=== PATIENT | female | born 1950 | race Caucasian/White ===

== ENCOUNTER 2025-01-11 13:13 | Outpatient (AMB) | payer MEDICARE, SELFPAY ==
--- NOTE | 2025-01-11 13:15 | A.OFFVIS_ITS ---
Vital Signs 01/11/25 13:16 Height 5 ft 2 in Weight 120 lb BMI 21.9 BP 150/60 H Blood Pressure Location Rt brachial Position Sitting Respiration 16 Pulse 88 Pulse Source Pulse Oximeter Pulse Oximetry (%) 97 Oxygen Delivery Method Room Air Intake Visit Reasons: low back pain Golf Caddy Required: No Accompanied by: Spouse Allergies erythromycin base Allergy (Unknown, Verified 01/11/25 13:18) Unknown Medication List - Last Reconciled 01/11/25 by Marylou Alcantar LPN aspirin 81 mg PO DAILY B-complex with vitamin C 1 cap PO DAILY [id number]-herb 353 1,250 mcg-150 mg-225 mcg tabs PO calcium carb-mag oxide-vit D3 400-167-133 mg-mg-unit (Calcium Magnesium plus D) tabs PO cholecalciferol (vitamin D3) 25 mcg PO DAILY citalopram 10 mg PO DAILY coenzyme Q10 (Co Q-10) 10 mg PO TID curcumin-phosphatidylcholine mg PO famotidine 40 mg PO BID folic acid 20 mg PO DAILY leucovorin calcium 10 mg PO QWEEK losartan 50 mg PO DAILY methotrexate sodium 20 mg PO QWEEK omega-3 fatty acids 500 mg PO DAILY prednisone 4 mg PO DAILY rosuvastatin 10 mg PO BEDTIME HPI HPI low back pain: Details: History of Present Illness The patient is a 74-year-old female presenting with chronic low back pain associated with polymyalgia rheumatica and osteoporosis. The patient has a history of osteoporosis, for which she takes calcium supplements and receives annual Reclast infusions. She initially completed three rounds of Reclast, which improved her condition from osteoporosis to osteopenia, but subsequent prednisone use for polymyalgia rheumatica led to a regression back to osteoporosis. Polymyalgia rheumatica has been managed with intermittent oral prednisone for flare-ups, and the patient is currently on methotrexate 2.5 mg six times a week. She reports that her back pain was present even while on prednisone, and it radiates to her left leg and buttock, sometimes causing numbness in the thigh. The patient has been diagnosed with spondylolisthesis in the lumbar and cervical spine, contributing to her pain. She experiences shoulder pain, which she attributes to cervical spondylolisthesis and a SLAP tear, as well as rotator cuff tendinopathy. The patient has attempted physical therapy for her lower back and shoulder issues, which provided some relief but did not resolve the problems. She maintains a daily exercise routine to manage her symptoms and prevent worsening of her condition. Recently, she has experienced sharp heel pain, suspected to be Achilles tendinitis, and is considering increasing her methotrexate dosage. Pain Description - Onset: Chronic low back pain present even while on prednisone. - Quality: Radiates to left leg and buttock, causing numbness in the thigh. - Location: Low back, left leg, left buttock. - Radiation: Radiates to left leg and buttock. - Exacerbating Factors: Physical activity may worsen pain. - Relieving Factors: Lying on tennis balls provides temporary relief. - Interference: Pain interferes with walking and daily activities. Physical Exam - Appears afebrile. - Alert and oriented. - Mood and affect appropriate. - Follows and participates in conversation appropriately. - Respiratory effort is unlabored. - Able to transition from sit to stand unassisted. - Ambulates with bilaterally normal heel strike and toe off. - Able to stand and walk on toes and heels. Results - MRI report from 2021 Pain Management - Affect: Pain impacts daily activities and mobility. - Analgesia: Currently using Tylenol for shoulder pain. - Adverse Effects: No specific adverse effects from pain medications discussed. - Activities of Daily Living: Pain limits walking and certain movements. - Aberrant Drug Related Behaviors: No aberrant behaviors reported. [facility] Medical History (Updated 01/11/25 @ 13:46 by Gage Sevilla MD) Polymyalgia rheumatica Left carotid artery stenosis Stricture of esophagus Osteoporosis Depression GERD (gastroesophageal reflux disease) Migraine Chronic low back pain Physical Exam Vital Signs: Last Vital Signs Pulse 88 01/11/25 13:16 Resp 16 01/11/25 13:16 BP 150/60 H 01/11/25 13:16 Pulse Ox 97 01/11/25 13:16 Oxygen Delivery Method Room Air 01/11/25 13:16 BMI result Body Mass Index 21.9 Assessment & Plan Assessment & Plan (1) Lumbar radicular pain: Code(s): M54.16 - Radiculopathy, lumbar region Category: Medical (2) Cervical radicular pain: Code(s): M54.12 - Radiculopathy, cervical region Category: Medical Plan Plan Patient was informed and verbally consented to the use of an ambient scribe for clinic note documentation during this visit. 1. Osteoporosis - Continue annual Reclast infusions and calcium supplementation. - Avoid excessive use of corticosteroids to prevent further bone density loss. 2. Polymyalgia Rheumatica - Continue methotrexate 2.5 mg six times a week. - Consider increasing methotrexate dosage if symptoms persist. 3. Spondylolisthesis - Obtain MRI of cervical and lumbar spine to assess nerve involvement. - Continu HEP/physical therapy to improve mobility and manage pain. 4. Rotator Cuff Tendinopathy - Engage in physical therapy to improve range of motion and decrease pain. 5. Slap Tear - Consider physical therapy as a non-surgical option for management. 6. Achilles Tendinitis - Implement stretching exercises to alleviate symptoms. Discussion Notes I discussed with the patient the need for MRIs of the cervical and lumbar spine to assess nerve involvement and determine the extent of spondylolisthesis. We reviewed the limitations of treatment options due to osteoporosis, including the limited candidacy for cortisone injections and surgery. Physical therapy was recommended as a non-invasive option to manage pain and improve mobility. Patient Instructions - Schedule MRIs for cervical and lumbar spine at [facility]. - Continue current medication regimen and consider increasing methotrexate if symptoms persist. - Engage in daily stretching and physical therapy exercises to manage pain and improve mobility. - Follow up with the new liquid waste treatment plant operator next month. Orders: Orders MR cervical spine wo con 01/11/25 M54.12 - Radiculopathy, cervical region MR lumbar spine wo con 01/11/25 M54.16 - Radiculopathy, lumbar region Coding Level of Care Code New Pt Level 4 (17738) Diagnoses Lumbar radicular pain M54.16 Cervical radicular pain M54.12
[2025-01-11 13:16] VITALS: BP 150/60; PULSE 88; RESP 16; O2SAT 97; BMI 21.9
--- OUTSIDE RECORDS SUMMARY | 2025-01-11 15:36 | XMS_ITS | Encounter Summary ---
Author Organization [facility] Address [address] [facility] [address] [place] [id number] Phone Care Team Providers Care Inset Cutter Name Role Phone Benedict Abrams MD Unavailable [phone] Casper Bashir VEIN ACCESS TECHNICIAN Unavailable Wilton Rogers VEIN ACCESS TECHNICIAN Unavailable Dasha Lilly MD Unavailable [phone] Yelena Edwards MD Primary Care Provider Encounter Details Date Type Department Care Team (Latest Contact Info) Description 09/08/2019 Transcribe Orders [facility] [address] [place] [address] Sarah Beth Cid PA [address] [place] [address] [email or web address] Gastroesophageal reflux disease, esophagitis presence not specified (Primary Dx); Essential hypertension, malignant; Routine general medical examination at a health care facility Social History Tobacco Use Types Packs/Day Years Used Date Smoking Tobacco: Never Smokeless Tobacco: Never Alcohol Use Standard Drinks/Week Comments Yes 4 (1 standard drink = 0.6 oz pur e alcohol) Comments No Sex and Gender Information Value Date Recorded Sex Assigned at Female 11/03/2021 10:21 AM EDT Legal Sex Female 10:00 PM EDT Gender Identity Female 11/03/2021 10:21 AM EDT Sexual Orientation Straight 11/03/2021 10 :21 AM EDT documented as of this encounter Plan of Treatment Upcoming Encounters Date Type Department Care Team (Late st Contact Info) Description 10/26/2024 Procedure Pass [address] [address] 02/02/2025 10:00 AM EDT Procedure visit [facility] [address] [place] [address] Wilton Rogers, VEIN ACCESS TECHNICIAN [address] [facility], 2nd [place] [address] [email or web address] 02/09/2025 9:10 AM EDT Office Visit [facility] [address] [place] [address] Benedict Anaya DO [address] [place] [address] jose 06/04/2025 2:15 PM EST Appointment [address] [address] Yelena Edwards MD [address] [place] [address] [email or web address] documented as of this encounter Results * Urinalysis (09/08/2019 8:27 AM EDT) COLOR Yellow Yellow [facility] CLARITY HAZY [facility] GLUCOSE Negative Negative [facility] BILI Negative Negative [facility] KETONES Negative Negative [facility] SPECIFIC GRAVITY 1.010 1.005 - 1.030 [facility] BLOOD Negative Negative [facility] PH 7.5 5.0 - 8.0 [facility] Protein-UA Negative Negative [facility] NITRITE Negative Negative [facility] Leukocyte esterase, ur Negative Negative [facility] Urine (Urine) 09/08/2019 8:2 7 AM EDT 09/08/2019 8:32 AM EDT us Sarah Beth AWAN URINE ORDERABLES Final Result Performing Organization Address [facility]/ZIP Co de Phone Number [address] [address] * Lyme screen with reflex to Western blot, blood (09/08/2019 8:27 AM EDT) Lyme AB IgG Negative Negative [facility] Lyme AB IgM Negative Negative [facility] Blood 09/08/2019 8:27 AM EDT 09/08/2019 8:32 AM EDT Sarah Beth AWAN LAB BLOOD ORDERABLES Final Resu lt Performing Organization Address [facility]/ZIP Co de Phone Number [address] [address] * Hemoglobin A1c (09/08/2019 8:27 AM EDT) Pathologist [facility] HEMOGLOBIN A1C 4.8 4.3 - 5.8 % [facility] Blood 09/08/2019 8:27 AM EDT 09/08/2019 8:32 AM EDT Sarah Beth AWAN LAB BLOOD ORDERABLES Final Resu lt Performing Organization Address [facility] Co de Phone Number [address] [address] * (ABNORMAL) CBC and differential (09/08/2019 8:27 AM EDT) Pathologist [facility] WBC 6.74 4.00 - 11.00 K/uL [facility] Comment:Note Reference Range updates to all CBC and Differential results. RBC 4.42 3.72 - 5.30 M/uL [facility] HGB 13.7 11.4 - 15.9 g/dL [facility] Comment:Note updated Referen ce Ranges for all CBC and Differential results. HCT 39.9 34.2 - 46.8 % [facility] PLT 266 140 - 430 K/uL [facility] MCV 90.3 78.0 - 97.0 fL [facility] MCH 31.0 25.0 - 33.0 pg [facility] MCHC 34.3 32.0 - 36.0 g/dL [facility] RDW 12.8 11.0 - 16.0 % [facility] MPV 10.3 8.4 - 12.8 fl [facility] NRBC 0.00 0 /100 WBCs [facility] ABSOLUTE NRBC 0.00 0 K/uL [facility] DIFF METHOD Auto [facility] NEUTS 52.1 43.0 - 75.0 % [facility] LYMPHS 30.1 18.2 - 47.4 % [facility] MONOS 8.5 4.00 - 11.00 % [facility] EOS 7.6 0.0 - 8.0 % [facility] BASOS 1.6 0.0 - 2.0 % [facility] Granulocytes, immature (%) 0.1 0.0 - 0.9 % [facility] ABSOLUTE NEUTS 3.51 1.80 - 7.70 K/uL [facility] ABSOLUTE LYMPHS 2.03 1.00 - 3.10 K/uL [facility] ABSOLUTE MONOS 0.57 0.20 - 0.80 K/uL [facility] ABSOLUTE EOS 0.51 0.00 - 0.80 K/uL [facility] ABSOLUTE BASOS 0.11(H) 0.00 - 0.09 K/uL [facility] Granulocytes, immature 0.01 0.00 - 0.05 K/uL [facility] Specimen Location / Location / Laterality Collection Method / Volume Collection Time Received Time
--- OUTSIDE RECORDS SUMMARY | 2025-01-11 15:36 | XMS_ITS ---
documented as of this encounter Results * XR CHEST PA AND LATERAL 2 VIEWS (05/12/2019 4:49 PM EST) Anatomical Region Laterality Modality Chest Radiographic Sita ging 05/12/2019 5:13 PM EST Impressions 05/12/2019 5:14 PM EST Focal lingular airspace opacity compatible with pneumonia. Follow-up to resolution is advised. POS [id number] Narrative 05/12/2019 5:14 PM EST XR CHEST PA AND LATERAL 2 VIEWS HISTORY: COUGH FEVER RO PNEUMONIA COMPARISON: None FINDINGS: Lines and Tubes: None. Heart and mediastinum:The cardiac silhouette is normal in size. No mediastinal or hilar enlargement. Lungs and Pleural: A focal lingular airspace opacity is present partially obscuring the left cardiac border. No pneumothorax or pleural effusion. Bones and Soft Tissues: No acute abnormality. Procedure Note Reji Page MD - 05/12/2019 XR CHEST PA AND LATERAL 2 VIEWS HISTORY: COUGH FEVER RO PNEUMONIA COMPARISON: None FINDINGS: Lines and Tubes: None. Heart and mediastinum:The cardiac silhouette is normal in size. Nomediastinal or hilar enlargement. Lungs and Pleural: A focal lingular airspace opacity is present partiallyobscuring the left cardiac border. No pneumothorax or pleural effusion. Bones and Soft Tissues: No acute abnormality. IMPRESSION: Focal lingular airspace opacity compatible with pneumonia. Follow-up toresolution is advised. POS [id number] Yelena Edwards MD IMG XR CHEST Final Resul t documented in this encounter Visit Diagnoses Diagnosis Cough Fever, unspecified fever cause Cough Fever, unspecified fever cause documented in this encounter Additional Health Concerns Infection Onset Date Last Indicated Resolved Time CoV-Risk 10/14/2019 10/14/2019 10/28/2019 1:23 AM EDT CoV-Risk 07/09/2022 07/09/2022 07/20/2022 1:22 AM EDT CoV-Risk 01/22/2023 01/22/2023 02/02/2023 1:22 AM EDT CoV-Risk 05/20/2023 05/20/2023 05/31/2023 1:22 AM EST Influenza A 05/20/2023 05/20/2023 05/27/2023 1:22 AM EST documented as of this encounter Care Teams Boiler Or Engine Operator Relationship Specialty Start Date End Date Yelena Edwards MD [address] [place] [address] PCP - General Internal Medicine 05/12/19 Benedict Abrams MD [address] [place] [address], [address] [place] [address] Historical LMR Provider 02/10/17 2 Casper Bashir, BORA [address] [place] [address], [address] [address] Historical LMR Provider 02/10/17 04/29/21 Wilton Rogers TOLL OPERATOR [address] [place] [address], [address] [place] [address] Historical LMR Provider 02/10/17 04/29/21 Dasha Lilly MD [address] [place] [id number] Historical LMR Provider 02/10/17 2 documented as of this encounter Additional Source Comments The information contained in this document represents components of the legal health record. It is not the complete legal health record.[facility]
--- OUTSIDE RECORDS SUMMARY | 2025-01-11 15:36 | XMS_ITS | Encounter Summary ---
Demographics Address [address] [place], [place] [id number] Mobile Phone Home Phone Email Address Preferred Language Gibraltarian
--- OUTSIDE RECORDS SUMMARY | 2025-01-11 15:37 | XMS_ITS | Encounter Summary ---
Author Organization [facility]
--- OUTSIDE RECORDS SUMMARY | 2025-01-11 15:37 | XMS_ITS | Encounter Summary ---
Demographics Address [address] [place] [address] Mobile Phone Home Phone Email Address Preferred Language Azerbaijani Marital Status /Civil Union Cheondoism Affiliation Unknown Race White
--- OUTSIDE RECORDS SUMMARY | 2025-01-11 15:37 | XMS_ITS | Encounter Summary ---
Author Organization [facility] Address [address] [place] [phone] Phone
== END 2025-01-11 14:08 | disposition home or self-care (01) ==
LOC: HO.PMC 13:13
PROVIDERS: PCP Physician Assistant; Visit Provider Internal Medicine
DX: M54.16 Radiculopathy, lumbar region (principal); M54.12 Radiculopathy, cervical region
CPT/HCPCS: 99204

== ENCOUNTER → 2025-01-11 13:13 | Outpatient (BNVA) | payer MEDICARE, SELFPAY | PROVIDERS: PCP Physician Assistant; Visit Provider Internal Medicine | DX: M54.16 Radiculopathy, lumbar region (principal); M54.12 Radiculopathy, cervical region; M81.0 Age-related osteoporosis without current pathological fracture; M35.3 Polymyalgia rheumatica | CPT/HCPCS: 99202 ==